=== PATIENT | male | born 1950 | race Caucasian/White ===

== ENCOUNTER 2017-03-28 08:28 | Inpatient (IN) | payer SELFPAY ==
[2017-03-28] MEDS ORDERED: Nitroglycerin 2% Oint 1 GM UD Packet TOP ONE (08:36)
[2017-03-28] MEDS ORDERED: Aspirin 81 MG Tab.Chew PO ONE (08:36)
[2017-03-28] MEDS ORDERED: Sodium Chloride 0.9% 10 ML Syringe FLUSH PRN (08:36)
[2017-03-28] MEDS ORDERED: Sodium Chloride 0.9% 2.5 ML Syringe FLUSH PRN (08:36)
[2017-03-28] MEDS ORDERED: Sodium Chloride 0.9% 1,000 ML IV SCH (08:45)
--- NOTE | 2017-03-28 09:06 | EDM.PDOC ---
ED HPI GENERAL MEDICAL PROBLEM - General Chief Complaint: Chest Pain Stated Complaint: STROKE Time Seen by Provider: 03/28/17 08:35 Source of Information: Reports: Patient History Limitations: Reports: No Limitations - History of Present Illness INITIAL COMMENTS - FREE TEXT/NARRATIVE: HISTORY AND PHYSICAL: History of present illness: [66-year-old male with a known history of coronary artery disease now presents emergency department complaining of chest pain. Patient states he has had achy mid chest pain for 2 days. This morning he continued to have this discomfort as well symptoms radiating to his left arm. He denies shortness of breath cough productive cough or fever. Denies pleuritic pain. Patient is currently comfortable. Patient has never smoked but he knows he has high blood pressure high cholesterol and was told he was evolving some type 2 diabetes 10 years ago. Over this 10 years patient has been noncompliant with any medication regimen as he states he's felt well and he didn't think he needed the medications. He also mentions that he has a strong family history of coronary artery disease. 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 He was taken to the [facility] and one stent was placed. He said during that episode a coronary artery was ruptured and the procedure had to convert to a CABG. 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 Currently pain free Review of systems: As per history of present illness and below otherwise all systems reviewed and negative. Past medical history: As per history of present illness and as reviewed below otherwise noncontributory. Surgical history: As per history of present illness and as reviewed below otherwise noncontributory. Social history: No reported history of drug or alcohol abuse. Family history: As per history of present illness and as reviewed below otherwise noncontributory. Physical exam: HEENT: Atraumatic, normocephalic, pupils reactive, negative for conjunctival pallor or scleral icterus, mucous membranes moist, throat clear, neck supple, nontender, trachea midline. Lungs: Clear to auscultation, breath sounds equal bilaterally, chest nontender. Heart: S1S2, regular, negative for clicks, rubs, or JVD. Abdomen: Soft, nondistended, nontender. Negative for masses or hepatosplenomegaly. Negative for costovertebral tenderness. Pelvis: Stable nontender. Genitourinary: Deferred. Rectal: Deferred. Extremities: Atraumatic, negative for cords or calf pain. Neurovascular unremarkable. Neuro: Awake, alert, oriented. Cranial nerves grossly unremarkable. Cerebellum unremarkable. Motor and sensory unremarkable throughout. Exam nonfocal. Diagnostics: [EKG with normal sinus rhythm at 88 left axis deviation right bundle branch block inferior Q waves Chest x-ray unremarkable no acute disease interpreted by me] Therapeutics: [Nitroglycerin paste applied and by mouth aspirin given] Impression: [Chest pain] Uncontrolled hypertension Medication noncompliance Plan: [Signs and symptoms consistent with chest pain possible cardiac etiology in a patient with an extensive history of known coronary artery disease but without cardiac care for surveillance by physician for 10 years. Over that same timeframe, Patient has been extensively noncompliant with his hypertension, his high cholesterol, and what he was told was evolving type 2 diabetes. EKG with evidence of Q waves in the inferior distribution consistent with what patient describes as his prior ME as well as right bundle branch block. He is comfortable and well-appearing, smiling laughing on exam. Patient's blood pressure is uncontrolled with a diastolic of 111. Nitroglycerin paste applied. Aspirin given. Full workup pending. Anticipate observation telemetry admission to the service of Dr. Fabricio Harding for further workup and treatment as needed, and to arrange follow- up and continued care with cardiology and primary care. Definitive disposition and diagnosis as appropriate pending reevaluation and review of above. - Related Data Allergies Allergy/AdvReac Type Severity Reaction Status Date / Time No Known Allergies Allergy Verified 03/28/17 08:35 Home Meds: Home Meds Aspirin 81 mg PO DAILY 03/28/17 [History] Nebivolol [Bystolic] 5 mg PO DAILY 03/28/17 [History] Nitroglycerin [Nitrostat] 0.4 mg SL Q5M PRN 03/28/17 [History] Simvastatin [Zocor] 40 mg PO BEDTIME 03/28/17 [History] ED ROS GENERAL - Review of Systems Review Of Systems: See Below (History of present illness) ED EXAM, GENERAL - Physical Exam Exam: See Below (History of present illness) Course - Orders/Labs/Meds Orders: Active Orders 24 hr Category Date Time Status EKG 12 Lead [EKG Documentation Completion] [RC] STAT Care 03/28/17 08:36 Ordered Chest 1V Frontal [CR] Stat Exams 03/28/17 08:36 Ordered CBC WITH AUTO DIFF [HEME] Stat Lab 03/28/17 08:36 Ordered COMPREHENSIVE METABOLIC PN,CMP [CHEM] Stat Lab 03/28/17 08:36 Ordered TROPONIN I [CHEM] Stat Lab 03/28/17 08:36 Ordered Sodium Chloride 0.9% @ 125 MLS/HR (1,000ml) Med 03/28/17 08:45 Ordered Sodium Chloride 0.9% [Normal Saline] 1,000 ml IV ASDIRECTED Sodium Chloride 0.9% [Saline Flush] Med 03/28/17 08:36 Ordered 10 ml FLUSH ASDIRECTED PRN Sodium Chloride 0.9% [Saline Flush] Med 03/28/17 08:36 Ordered 2.5 ml FLUSH ASDIRECTED PRN Peripheral IV Insertion Adult [OM.PC] Stat Oth 03/28/17 08:36 Ordered Medication Orders Sodium Chloride (Normal Saline) 1,000 mls @ 125 mls/hr IV ASDIRECTED IDALIA Sodium Chloride (Saline Flush) 10 ml FLUSH ASDIRECTED PRN PRN Reason: Keep Vein Open Sodium Chloride (Saline Flush) 2.5 ml FLUSH ASDIRECTED PRN PRN Reason: Keep Vein Open Meds: Medications Generic Name Dose Route Start Last Admin Trade Name Freq PRN Reason Stop Dose Admin Sodium Chloride 1,000 mls @ 125 mls/hr 03/28/17 08:45 Normal Saline IV ASDIRECTED IDALIA Sodium Chloride 10 ml 03/28/17 08:36 Saline Flush FLUSH ASDIRECTED PRN Keep Vein Open Sodium Chloride 2.5 ml 03/28/17 08:36 Saline Flush FLUSH ASDIRECTED PRN Keep Vein Open Discontinued Medications Generic Name Dose Route Start Last Admin Trade Name Freq PRN Reason Stop Dose Admin Aspirin 324 mg 03/28/17 08:36 Aspirin PO 03/28/17 08:37 ONETIME ONE Nitroglycerin 1 gm 03/28/17 08:36 Nitro-Bid 2% TOP 03/28/17 08:37 ONETIME ONE Departure - Departure Time of Disposition: 09:12 Disposition: Refer to Observation Condition: Good Clinical Impression: Chest pain, Uncontrolled hypertension, Noncompliance with medication regimen - Discharge Information - My Orders Last 24 Hours: My Active Orders 03/28/17 08:36 EKG 12 Lead [EKG Documentation Completion] [RC] STAT Chest 1V Frontal [CR] Stat CBC WITH AUTO DIFF [HEME] Stat COMPREHENSIVE METABOLIC PN,CMP [CHEM] Stat TROPONIN I [CHEM] Stat Sodium Chloride 0.9% [Saline Flush] 10 ml FLUSH ASDIRECTED PRN Sodium Chloride 0.9% [Saline Flush] 2.5 ml FLUSH ASDIRECTED PRN Peripheral IV Insertion Adult [OM.PC] Stat 03/28/17 08:45 Sodium Chloride 0.9% @ 125 MLS/HR (1,000ml) Sodium Chloride 0.9% [Normal Saline ] 1,000 ml IV ASDIRECTED - Assessment/Plan Last 24 Hours: My Active Orders 03/28/17 08:36 EKG 12 Lead [EKG Documentation Completion] [RC] STAT Chest 1V Frontal [CR] Stat CBC WITH AUTO DIFF [HEME] Stat COMPREHENSIVE METABOLIC PN,CMP [CHEM] Stat TROPONIN I [CHEM] Stat Sodium Chloride 0.9% [Saline Flush] 10 ml FLUSH ASDIRECTED PRN Sodium Chloride 0.9% [Saline Flush] 2.5 ml FLUSH ASDIRECTED PRN Peripheral IV Insertion Adult [OM.PC] Stat 03/28/17 08:45 Sodium Chloride 0.9% @ 125 MLS/HR (1,000ml) Sodium Chloride 0.9% [Normal Saline ] 1,000 ml IV ASDIRECTED
[2017-03-28 09:07] LABS: CHLORIDE,CL 104 mmol/L (98-110); SODIUM,NA 137 mmol/L (136-146)
[2017-03-28] MEDS ORDERED: Nitroglycerin 0.4 MG Tab.SL SL PRN (11:25)
--- NOTE | 2017-03-28 12:05 | PCM.HP ---
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 He has a history of CAD with MA and CABG x2. He reports his last CABG was over nine years ago. Since then he only sporatically follows up with doctors and never here in [place]. He has been prescribed bystolic, statin, and nitro sl , but does not take them regularly. He reports taking his blood pressure daily and it is usually high around 160-70/90-110. He reports taking nitro if it gets to high. Today he reported chest pressure that radiated to the left arm with associated symptoms of shortness of breath and lightheadedness. He checked his blood pressure and it was over 200 systlic. He took a 2 nitros and his bystolic and then he reported to the ED. In the ED he received nitro past, ASA with improvement in his chest pain. EKG reported sinus rhythm with right bundle branch block. Troponin was negative. chest Pain Score (Numeric/FACES): 2 - Related Data Allergies/Adverse Reactions: Allergies Allergy/AdvReac Type Severity Reaction Status Date / Time No Known Allergies Allergy Verified 03/28/17 08:35 Home Medications: Home Meds Aspirin 81 mg PO DAILY 03/28/17 [History] Nebivolol [Bystolic] 5 mg PO DAILY 03/28/17 [History] Nitroglycerin [Nitrostat] 0.4 mg SL Q5M PRN 03/28/17 [History] Simvastatin [Zocor] 40 mg PO BEDTIME 03/28/17 [History] Past Medical History HEENT History: Reports: Impaired Vision Other HEENT History: wears glasses Cardiovascular History: Reports: Bypass, High Cholesterol, Hypertension, MA, Stents, Other (See Below) Other Cardiovascular History: CABG Neurological History: Reports: Other (See Below) Other Neuro History: Dementia - Past Surgical History Cardiovascular Surgical History: Reports: Vascular Surgery Social & Family History - Family History Family Medical History: Noncontributory Cardiac: Reports: MA - Tobacco Use Smoking Status *Q: Never Smoker Second Hand Smoke Exposure: No - Recreational Drug Use Recreational Drug Use: No H&P Review of Systems - Review of Systems: Review Of Systems: ROS reveals no pertinent complaints other than HPI. Exam - Exam Exam: See Below - Vital Signs Vital Signs: Last Vital Signs Temp 37.1 C 03/28/17 09:34 Pulse 75 03/28/17 09:34 Resp 18 03/28/17 09:34 BP 125/98 H 03/28/17 09:34 Pulse Ox 95 03/28/17 09:34 Weight: 84.187 kg - Exam General: Alert, Oriented, 4 Neck: Supple, Trachea Midline, 2 Lungs: Clear to Auscultation, Normal Respiratory Effort Cardiovascular: Regular Rate, Regular Rhythm GI/Abdominal Exam: Normal Bowel Sounds, Soft, Non-Tender, No Organomegaly, No Distention, No Abnormal Bruit, No Mass, Pelvis Stable Extremities: Normal Inspection, Normal Range of Motion, Non-Tender, No Pedal Edema, Normal Capillary Refill Skin: Warm, Dry, Intact Neurological: No: Focal Deficit - Patient Data Result Diagrams: 03/28/17 08:30 03/28/17 08:30 *Q Meaningful Use (ADM) - VTE *Q VTE Criteria *Q: - Stroke *Q Stroke Criteria *Q: - AMI *Q AMI Criteria *Q: Problem List Initiated/Reviewed/Updated: Yes Orders Last 24hrs: Active Orders 24 hr Category Date Time Status Heart Healthy Diet [DIET] Diet 03/28/17 Lunch Active TROPONIN I [CHEM] Q6H Lab 03/28/17 14:00 Ordered TROPONIN I [CHEM] Q6H Lab 03/28/17 20:00 Ordered Aspirin Med 03/29/17 09:00 Ordered 81 mg PO DAILY Nebivolol Med 03/29/17 09:00 Ordered 5 mg PO DAILY Nitroglycerin [Nitrostat] Med 03/28/17 11:25 Ordered 0.4 mg SL Q5M PRN Simvastatin [Zocor] Med 03/28/17 21:00 Ordered 40 mg PO BEDTIME Medication Orders Aspirin (Aspirin) 81 mg PO DAILY IDALIA Sodium Chloride (Normal Saline) 1,000 mls @ 125 mls/hr IV ASDIRECTED IDALIA Last Admin: 03/28/17 08:51 Dose: 125 mls/hr Nitroglycerin (Nitrostat) 0.4 mg SL Q5M PRN PRN Reason: Chest Pain Nebivolol 5 Mg 5 each PO DAILY IDALIA Simvastatin (Zocor) 40 mg PO BEDTIME IDALIA Sodium Chloride (Saline Flush) 10 ml FLUSH ASDIRECTED PRN PRN Reason: Keep Vein Open Sodium Chloride (Saline Flush) 2.5 ml FLUSH ASDIRECTED PRN PRN Reason: Keep Vein Open Assessment/Plan Comment:: 66 yo male who presented with chest pain. Monitor on telemetry and trend cardiac enzymes. 2nd troponin elevated at 0.78. Patient has refused transfer to another hospital and cardiology consultation. We will transfer to ICU, start heparin drip and plavix. Patient reports chest pain has for the most part resolved. He reports some mild soreness with deep inspiration.
[2017-03-28] MEDS ORDERED: Acetaminophen 325 MG Tab PO PRN (12:16)
[2017-03-28] MEDS ORDERED: Heparin Sod,Pork In 0.45% Nacl 25,000 UNIT/500 ML IV.SOLN IV SCH ×3 (14:30→15:15)
[2017-03-28] MEDS ORDERED: Heparin Sodium 5,000 Units/ML Vial ONE (14:39)
[2017-03-28] MEDS ORDERED: Heparin Sodium 5,000 Units/ML Vial IVPUSH ONE (14:45)
[2017-03-28] MEDS ORDERED: Clopidogrel 75 MG Tab PO ONE (15:06)
[2017-03-28] MEDS ORDERED: Nitroglycerin/D5W 25 MG/250 ML BOTTLE IV SCH (15:15)
[2017-03-28] MEDS ORDERED: Heparin Sodium 1,000 Units/ML MDV IV ONE (15:15)
[2017-03-28] MEDS ORDERED: Heparin Sodium 5,000 Units/ML Vial IV ONE (15:15)
[2017-03-28] MEDS ORDERED: atorvaSTATin 40 MG Tab PO SCH (21:00)
[2017-03-28] MEDS ORDERED: Simvastatin 40 MG Tab PO SCH (21:00)
[2017-03-28] MEDS: Metoprolol Tartrate 25 MG Tab PO SCH (21:21)
[2017-03-29 04:07] LABS: CHLORIDE,CL 105 mmol/L (98-110); SODIUM,NA 137 mmol/L (136-146)
[2017-03-29] MEDS ORDERED: Insulin Aspart 100 Units/ML 3 ML Pen SUBCUT SCH (07:30)
[2017-03-29] MEDS: Metoprolol Tartrate 25 MG Tab PO SCH (08:58)
[2017-03-29] MEDS ORDERED: Aspirin 81 MG Tab.Chew PO SCH (09:00)
[2017-03-29] MEDS ORDERED: Clopidogrel 75 MG Tab PO SCH (09:00)
[2017-03-29] MEDS ORDERED: Lisinopril 5 MG Tab PO SCH (09:00)
[2017-03-29 09:02] VITALS: BP 141/112
--- NOTE | 2017-03-29 09:54 | PCM.DCSUM1 ---
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 He has a history of CAD with GA and CABG x2. He reported his last CABG was over nine years ago. He He has been prescribed bystolic, statin, and nitro sl, but does not take them regularly. He reports taking his blood pressure daily and it is usually high around 160-70/90-110. He takes nitro if it gets to high. On day of admission he reported chest pressure that radiated to the left arm with associated symptoms of shortness of breath and lightheadedness. His blood pressure was over 200 systolic when he checked it at home. He took a 2 nitros and his bystolic and then he reported to the ED. His nitroglycerin tablets he took at home in 2008. EKG reported sinus rhythm with right bundle branch block. initial troponin was negative. He was admitted and placed on nitro paste, and given full dose ASA. His second troponin elevated to 0.78 and he was given 300mg of plavix, started on heparin , metoprolol, and lipitor. His troponin did eventual rise to 15.85 but his chest pain had largely resolved in the emergency department. This morning patient is demanding discharge. He reports that he has urgent family matters to attend to that are time sensitive and confidential. I explained to him that even though he was not having chest pain while in the hospital he was still at high risk for having another coronary event and that he should stay to ensure the cardiac enzymes are declining and to have further evaluation by a tilesetter. I recommended that he be transferred to another facility or stay here to be evaluated by our tilesetter who returns tomorrow. I explained that according to ANUPAM score his mortality risk is 40% but would be even higher if he left against medical advise. Patient understood the high mortality associated with his current condition and believed what I said to be true. He appears to have capacity to make decisions. His history of Pick's disease was concerning but this was apparently diagnosed on brain imaging and family history and not on symptoms. He has no signs of dementia or psychosis and states clear values which are consistent to his past choices of limited care and minimal follow up of his coronary artery disease. Patient states he has been living with coronary artery disease for ten years and that he knows that he is risking by leaving. He was advised not to travel or drive which he agrees. Patient states he will call a cab. In order to reduce the harm of leaving against medical advice I gave him prescriptions of ASA, plavix, metoprolol, nitro SL, lisinopril, and lipitor. He states he will return if his chest pain comes back. - Discharge Plan Prescriptions/Med Rec: Metoprolol Tartrate [Lopressor] 12.5 mg PO Q12HR #30 tablet Aspirin 325 mg PO DAILY #14 tablet Clopidogrel [Plavix] 75 mg PO DAILY #14 tablet Lisinopril [Prinivil] 5 mg PO DAILY #14 tablet Nitroglycerin [IJP: Nitroglycerin] 0.4 mg SL Q5M PRN #20 tablet, sublingual PRN Reason: Chest Pain atorvaSTATin [Lipitor] 40 mg PO BEDTIME #14 tablet Home Medications: Home Meds Aspirin 325 mg PO DAILY #14 tablet 03/29/17 [Rx] Clopidogrel [Plavix] 75 mg PO DAILY #14 tablet 03/29/17 [Rx] Lisinopril [Prinivil] 5 mg PO DAILY #14 tablet 03/29/17 [Rx] Metoprolol Tartrate [Lopressor] 12.5 mg PO Q12HR #30 tablet 03/29/17 [Rx] Nitroglycerin [IJP: Nitroglycerin] 0.4 mg SL Q5M PRN #20 tablet, sublingual [Rx] atorvaSTATin [Lipitor] 40 mg PO BEDTIME #14 tablet 03/29/17 [Rx] Referrals: PCP,None [Primary Care Provider] - - Patient Data Vitals - Most Recent: Last Vital Signs Temp 36.3 C 03/29/17 08:00 Pulse 94 03/29/17 08:58 Resp 15 03/29/17 08:00 BP 141/112 H 03/29/17 08:58 Pulse Ox 98 03/29/17 08:00 Weight - Most Recent: 82.5 kg I&O - Last 24 hours: Intake & Output 03/28/17 03/29/17 03/29/17 22:59 06:59 14:59 Intake Total 480 Output Total 1310 Balance -830 Lab Results - Last 24 hrs: Laboratory Results - last 24 hr 03/29/17 03/29/17 03/29/17 Range/Units 03:20 03:28 03:28 WBC 10.18 (4.0-11.0) K/uL RBC 4.49 L (4.50-5.90) M/uL Hgb 14.3 (13.0-17.0) g/dL Hct 43.0 (38.0-50.0) % MCV 95.8 (80.0-98.0) fL MCH 31.8 (27.0-32.0) pg MCHC 33.3 (31.0-37.0) g/dL RDW Std Deviation 47.3 (28.0-62.0) fl RDW Coeff of Milena 14 (11.0-15.0) % Plt Count 188 (150-400) K/uL MPV 10.90 (7.40-12.00) fL Neut % (Auto) 69.5 (48.0-80.0) % Lymph % (Auto) 18.8 (16.0-40.0) % [place] % (Auto) 11.0 (0.0-15.0) % Eos % (Auto) 0.4 (0.0-7.0) % Baso % (Auto) 0.3 (0.0-1.5) % Neut # (Auto) 7.1 H (1.4-5.7) K/uL Lymph # (Auto) 1.9 (0.6-2.4) K/uL [place] # (Auto) 1.1 H (0.0-0.8) K/uL Eos # (Auto) 0.0 (0.0-0.7) K/uL Baso # (Auto) 0.0 (0.0-0.1) K/uL Nucleated RBC % 0.0 /100WBC Nucleated RBCs # 0 K/uL APTT (18.6-31.3) SEC Sodium (136-146) mmol/L Potassium (3.5-5.1) mmol/L Chloride (98-110) mmol/L Carbon Dioxide (21-31) mmol/L BUN (6.0-23.0) mg/dL Creatinine (0.6-1.5) mg/dL Est Cr Clr Drug Dosing mL/min Estimated GFR (MDRD) ml/min Glucose (60-110) mg/dL POC Glucose (60-110) mg/dL Calcium (8.8-10.8) mg/dL Magnesium 1.9 (1.5-2.3) mEq/L Troponin I 15.85 H* (0.0-0.29) NG/ML 03/29/17 03/29/17 03/29/17 Range/Units 03:28 03:28 07:15 WBC (4.0-11.0) K/uL RBC (4.50-5.90) M/uL Hgb (13.0-17.0) g/dL Hct (38.0-50.0) % MCV (80.0-98.0) fL MCH (27.0-32.0) pg MCHC (31.0-37.0) g/dL RDW Std Deviation (28.0-62.0) fl RDW Coeff of Milena (11.0-15.0) % Plt Count (150-400) K/uL MPV (7.40-12.00) fL Neut % (Auto) (48.0-80.0) % Lymph % (Auto) (16.0-40.0) % [place] % (Auto) (0.0-15.0) % Eos % (Auto) (0.0-7.0) % Baso % (Auto) (0.0-1.5) % Neut # (Auto) (1.4-5.7) K/uL Lymph # (Auto) (0.6-2.4) K/uL [place] # (Auto) (0.0-0.8) K/uL Eos # (Auto) (0.0-0.7) K/uL Baso # (Auto) (0.0-0.1) K/uL Nucleated RBC % /100WBC Nucleated RBCs # K/uL APTT 47.2 H (18.6-31.3) SEC Sodium 137 (136-146) mmol/L Potassium 4.6 (3.5-5.1) mmol/L Chloride 105 (98-110) mmol/L Carbon Dioxide 25 (21-31) mmol/L BUN 18 (6.0-23.0) mg/dL Creatinine 1.0 (0.6-1.5) mg/dL Est Cr Clr Drug Dosing 70.30 mL/min Estimated GFR (MDRD) > 60.0 ml/min Glucose 116 H (60-110) mg/dL POC Glucose 105 (60-110) mg/dL Calcium 9.3 (8.8-10.8) mg/dL Magnesium (1.5-2.3) mEq/L Troponin I (0.0-0.29) NG/ML Med Orders - Current: Current Medications Discontinued Medications Acetaminophen (Tylenol) 650 mg PO Q4H PRN PRN Reason: Pain (Mild 1-3)/fever Aspirin (Aspirin) 324 mg PO ONETIME ONE Stop: 03/28/17 08:37 Last Admin: 03/28/17 08:45 Dose: 324 mg Aspirin (Aspirin) 81 mg PO DAILY [facility] Last Admin: 03/29/17 08:58 Dose: 81 mg Atorvastatin Calcium (Lipitor) 40 mg PO BEDTIME [facility] Last Admin: 03/28/17 21:21 Dose: 40 mg Clopidogrel Bisulfate (Plavix) 300 mg PO ONETIME ONE Stop: 03/28/17 15:07 Last Admin: 03/28/17 15:59 Dose: 300 mg Clopidogrel Bisulfate (Plavix) 75 mg PO DAILY [facility] Last Admin: 03/29/17 08:57 Dose: 75 mg Heparin Sodium (Porcine) (Heparin Sodium) Confirm Administered Dose 5,000 units .ROUTE .STK-MED ONE Stop: 03/28/17 14:40 Last Admin: 03/28/17 15:08 Dose: Not Given Heparin Sodium (Porcine) (Heparin Sodium) 4,000 units IVPUSH ONETIME ONE Stop: 03/28/17 14:46 Last Admin: 03/28/17 14:48 Dose: 4,000 units Heparin Sodium (Porcine) (Heparin Sodium) 1,000 units IV ONETIME ONE Stop: 03/28/17 15:16 Last Admin: 03/28/17 15:07 Dose: 1,000 units Sodium Chloride (Normal Saline) 1,000 mls @ 125 mls/hr IV ASDIRECTED IDALIA Last Admin: 03/28/17 08:51 Dose: 125 mls/hr Heparin Sod,Pork In 0.45% Nacl (Heparin-1/2ns 25,000 Units/500) 25,000 unit in 500 mls @ 20.205 mls/hr IV TITRATE IDALIA; 12 UNITS/KG/HR PRN Reason: Protocol Heparin Sod,Pork In 0.45% Nacl (Heparin-1/2ns 25,000 Units/500) 25,000 unit in 500 mls @ 20.205 mls/hr IV TITRATE IDALIA; 12 UNITS/KG/HR PRN Reason: Protocol Heparin Sod,Pork In 0.45% Nacl (Heparin-1/2ns 25,000 Units/500) 25,000 unit in 500 mls @ 20.205 mls/hr IV TITRATE IDALIA; 12 UNITS/KG/HR PRN Reason: Protocol Last Titration: 03/29/17 04:27 Dose: 13 units/kg/hr, 21.889 mls/hr Nitroglycerin/Dextrose (Nitroglycerin 25 Mg/D5w 250 Ml) 25 mg in 250 mls @ 3 mls/hr IV TITRATE IDALIA; 5 MCG/MIN PRN Reason: Protocol Last Admin: 03/28/17 20:00 Dose: 5 mcg/min, 3 mls/hr Insulin Aspart (Novolog) 0 unit SUBCUT TIDAC IDALIA PRN Reason: Protocol Last Admin: 03/29/17 07:21 Dose: Not Given Lisinopril (Prinivil) 5 mg PO DAILY [facility] Last Admin: 03/29/17 08:58 Dose: 5 mg Metoprolol Tartrate (Lopressor) 12.5 mg PO Q12HR [facility] Last Admin: 03/29/17 08:58 Dose: 12.5 mg Nitroglycerin (Nitro-Bid 2%) 1 gm TOP ONETIME ONE Stop: 03/28/17 08:37 Last Admin: 03/28/17 08:47 Dose: 1 gm Nitroglycerin (Nitrostat) 0.4 mg SL Q5M PRN PRN Reason: Chest Pain Nebivolol 5 Mg 5 each PO DAILY [facility] Simvastatin (Zocor) 40 mg PO BEDTIME [facility] Sodium Chloride (Saline Flush) 10 ml FLUSH ASDIRECTED PRN PRN Reason: Keep Vein Open Sodium Chloride (Saline Flush) 2.5 ml FLUSH ASDIRECTED PRN PRN Reason: Keep Vein Open *Q Meaningful Use (DIS) - VTE *Q VTE Criteria *Q: - Stroke *Q Stroke Criteria *Q: - AMI *Q AMI Criteria *Q:
--- NOTE | 2017-03-30 10:59 | CR ---
EXAM DATE: 03/28/17 PATIENT'S AGE: 66 Patient: AMAN JOSHUA Facility: [place], [place] Site . Site : [id number] Study: XRay Chest [id number]/29/2017 9:03:48 AM Ordering Physician: Denny Alberts Final Report: CHEST 1 VIEW AP INDICATION: Chest pain. IMPRESSION: Normal heart size and vascular pattern. Prior midline sternotomy wires are present. Lungs are clear. No pneumothorax or pleural abnormality. ECG Monitor leads projected over the patient. Dictated by Zeke Patel MD @ Mar 28 2017 9:07AM (Electronic Signature) Report Signed by Proxy. TARIK
== END 2017-03-29 09:12 | disposition left against medical advice (07) | DRG 313 ==
LOC: MW.ED 08:28 → MW.MS 09:14 → MW.ICU 16:40 → OBSVTOIN 19:30
PROVIDERS: ADMIT Internal Medicine; ATTEND Internal Medicine
DX: R07.9 Chest pain, unspecified (principal); I10 Essential (primary) hypertension; I25.10 Atherosclerotic heart disease of native coronary artery without angina pectoris; E11.9 Type 2 diabetes mellitus without complications; G31.01 Pick's disease; F02.80 Dementia in other diseases classified elsewhere, unspecified severity, without behavioral disturbance, psychotic disturbance, mood disturbance, and anxiety; Z91.14 Patient's other noncompliance with medication regimen; E78.5 Hyperlipidemia, unspecified; I25.2 Old myocardial infarction; Z79.899 Other long term (current) drug therapy; Z95.1 Presence of aortocoronary bypass graft
CPT/HCPCS: 71010; 80053; 84484 ×3; 85025; 85730 ×2; 96360; 99285; A9270 ×3; J1644 ×3; J7040; 36415; 80048; 82962; 83735; 93005; 99283